=== PATIENT | female | born 1940 | race Caucasian/White ===

== ENCOUNTER 2022-05-22 12:15 | Emergency (ER) | payer MEDICARE, MEDICAID, SELFPAY ==
--- NOTE | 2022-05-22 12:33 | PC.NURSE ---
PT ARRIVED TO ED - CARDIAC ARREST, SEE CODE SHEET PRONOUNCED BY DR BASS AT [address] [facility] NOTIFIED OF PATIENT'S . SPOKE WITH EMMANUEL ON WEST UNIT
--- NOTE | 2022-05-22 13:40 | ED_ITS ---
HPI - CPR General Chief Complaint: Cardiac Arrest/CPR Stated Complaint: CARDIAC ARREST Time Seen by Provider: 05/22/22 12:34 Source: EMS Mode of arrival: EMS Limitations: other History of Present Illness HPI narrative: Patient comes to emergency room via EMS. According to the nursing facility, patient was found in respiratory arrest, subsequently went to cardiac arrest. EMS reports that when they got to the patient's room, the patient had the pad on her chest, but no one was doing compressions. The facility reported to EMS that the patient was less well seen 10 minutes prior to the arrival. However, EMS t hink that this was much longer than just 10 minutes. They attempted to intubate the patient in the field but they were unsuccessful. They gave 5 epinephrine pens, CPR was started by EMS, patient was in asystole the whole time, for a few seconds, they were able to a PEA rhythm, but shortly after went back to asystole. The senior living reports that they were not sure if the patient was DNR DNI. However, the patient's is a resident at the same facility, who requested the patient to be a full code. Related Data Allergies Allergy/AdvReac Type Severity Reaction Status Date / Time Unable to Assess Allergy Verified 05/22/22 12:35 Review of Systems Review of Systems: Yes Unobtainable due to mental condition PMFSH Social History Social History Advance Directives: No Advance Directives Information Provided: No Physical Exam Const: Other: Appearance: Unresponsive Eyes: Pupils equal, dilated, and reactive to light ENT: Pharynx normal. Neck: Normal inspection. Neck supple. No lymph nodes noted. No crepitus CVS: CPR in progress Respiratory: Patient intubated Abdomen: Soft and nontender. Mildly distention. Skin: Skin called, diffusely cyanotic Extremities: No lower extremity edema. No Lacerations. No Rash Neuro: Unresponsive Psych: Unresponsive Course Course Course Narrative: Patient was intubated on arrival to the emergency room, patient in asystole, to epinephrine were given. Overall, patient had been in cardiac arrest for approximately 40 minutes, unclear down time. Time of was called at 12:20 Discharge Plan Discharge Clinical Impression: Cardiac arrest Patient Disposition:
--- NOTE | 2022-05-22 14:16 | PC.NURSE ---
HAYDEN RN SPOKE WITH . AWARE OF 'S . SON MIRTHA ZAVALETA TO HANDLE ARRANGEMENTS. UNSURE OF HOME AT THIS TIME. MIRTHA [phone] DECLINED BY [facility]. CASE #[id number]
--- NOTE | 2022-05-22 14:30 | PC.NURSE ---
TO [facility] [place]
== END 2022-05-22 14:30 | disposition expired ==
PROVIDERS: Emergency Provider Emergency Medicine; PCP Internal Medicine Endocrinology, Diabetes & Metabolism
DX: I46.9 Cardiac arrest, cause unspecified (principal)
CPT/HCPCS: 99284